=== PATIENT | male | born 1945 | race Caucasian/White ===

== ENCOUNTER 2020-12-18 11:14 | Day surgery (SDC) | payer MEDICARE, BC ==
[2020-12-13 16:32] LABS: EOSINOPHILS # (AUTO) 0.3 X10'3 (0-0.9)
[2020-12-13 16:34] LABS: BASOPHILS # (AUTO) 0.1 X10'3 (0-0.2); BASOPHILS % (AUTO) 0.8 % (0-1); LYMPHOCYTES # (AUTO) 2.1 X10'3 (1.1-4.8); LYMPHOCYTES % (AUTO) 30.9 % (21-51); MEAN CORPUSCULAR HEMOGLOBIN 30.1 PG (27.0-31.0); MEAN CORPUSCULAR HGB CONC 33.1 g/dL (33.0-36.5); MEAN PLATELET VOLUME 7.5 FL (7.4-10.4); MONOCYTES # (AUTO) 0.9 X10'3 (0-0.9); MONOCYTES % (AUTO) 13.5 % (2-12); NEUTROPHILS # (AUTO) 3.4 X10'3 (1.8-7.7); NEUTROPHILS % (AUTO) 49.8 % (42-75); PRE OP HEMOGLOBIN 14.2 g/dL (14.0-17.9); PRE OP PLATELET COUNT 223 X10'3 (140-440); RED BLOOD COUNT 4.72 X10'6 (4.70-6.10); RED CELL DISTRIBUTION WIDTH 13.5 % (11.5-14.5)
[2020-12-13 16:44] LABS: PRE OP PROTIME 10.6 SECONDS (9.0-12.0)
[2020-12-13 16:50] LABS: ALBUMIN/GLOBULIN RATIO 1.3 (1.1-1.5); ALKALINE PHOSPHATASE 83 IU/L (46-116); BLOOD UREA NITROGEN 23 MG/DL (7-18); BUN/CREATININE RATIO 19.8 (5.4-32.0); CALCIUM 9.4 MG/DL (8.5-10.1); CHLORIDE 106 MMOL/L (99-107); CREATININE 1.16 MG/DL (0.60-1.10); PRE OP ALT 30 U/L (30-65); PRE OP ANION GAP 11 (8-16); PRE OP AST 16 U/L (10-37); PRE OP BILIRUB, TOTAL 0.4 MG/DL (0.0-1.0); PRE OP GLUCOSE 106 MG/DL (70-104); PRE OP POTASSIUM 4.2 MMOL/L (3.4-5.1); PRE OP SODIUM 143 MMOL/L (135-145); TOTAL CARBON DIOXIDE 25.9 MMOL/L (24-32); TOTAL PROTEIN 7.2 G/DL (6.4-8.2); eGFR 61 ML/MIN
[2020-12-18] VITALS (18 sets, daily range): BP systolic 105–144; BP diastolic 51–88
[~2020-12-18] VITALS: Ht 175.3 cm; Wt 86.5 kg
[2020-12-18] MEDS: multivitamins, therapeutics tablet PO SCH (08:00)
[~2020-12-18 11:14] MED LIST: HYDROmorphone 1 mg/ml syringe IV PRN; HYDROmorphone inj. 0.5 MG/0.5 ML DISP.SYRIN IV PRN; NO HOME MEDS; acetaminophen 325mg tablet PO ONE; acetaminophen 325mg tablet PO PRN; bisacodyl 10mg suppository rectal RC PRN; ceFAZolin 2gm in dextrose, iso 50 ML IV ONE; celeCOXIB 100mg capsule PO ONE; diphenhydrAMINE 25mg capsule PO PRN; famotidine 20mg tablet PO ONE; gabapentin 300mg capsule PO ONE; magnesium hydroxide 30ml (MOM) UD suspension PO PRN; metoclopramide 5 mg/ml inj IV ONE; ondansetron/PF 4mg/2ml inj IV PRN; oxyCODONE SR 10mg (sust. release) tab -2 tabs (20mg) PO ONE; oxyCODONE/APAP 10/325mg tablet PO PRN; ringers solution, lacted 1,000 ML IV SCH; tranexamic acid inj. 1,000 MG in normal saline 100 ML IV ONE; vancomycin 1,500 MG in NS 300ml IV soln IV ONE
[2020-12-18] MEDS ORDERED: tranexamic acid 1gm/0.7% sal. 100 ML IV ONE ×3 (12:10→19:00)
[2020-12-18] MEDS ORDERED: ROPIVAcaine inj 250 MG, CloNIDine/PF inj 80 MCG, epiNEPHrine inj 0.5 MG in normal salin... IV ONE (12:15)
[2020-12-18] MEDS ORDERED: LIDOcaine 1% (10mg/ml) 2ml vial ONE (12:21)
[2020-12-18] MEDS ORDERED: vancomycin 1,000mg inj ONE (12:22)
[2020-12-18] MEDS ORDERED: MIDAZolam 1mg/ml 10ml vial ONE (13:38)
[2020-12-18] MEDS ORDERED: fentaNYL/PF 50MCG/1 ML 2ML syringe ONE (13:38)
[2020-12-18] MEDS ORDERED: proCHLORperazine 10 MG/2 ml inj IV PRN (14:35)
[2020-12-18] MEDS ORDERED: morphine 2 MG/ML inj. syringe IV PRN (14:35)
[2020-12-18] MEDS ORDERED: ringers solution, lacted 1,000 ML IV SCH (14:35)
[2020-12-18] MEDS ORDERED: meperidine/PF 25mg/ml syringe IV PRN ×3 (14:35)
[2020-12-18] MEDS ORDERED: ondansetron/PF 4mg/2ml inj IV PRN (14:35)
[2020-12-18] MEDS ORDERED: morphine 4 MG/ML inj SYRINge IV PRN (14:35)
[2020-12-18] MEDS ORDERED: ROPIVAcaine 0.2% (10 MG/5 ML) BOLUS INJECTION ADDCANAL PRN (14:35)
[2020-12-18] MEDS ORDERED: ROPIVAcaine 0.5% (5mg/ml) 30ml vial ONE (15:23)
--- NOTE | 2020-12-18 15:51 | NUR ---
Received from OR via , accompanied by Anesthesiologist DR JOHNSON and report given by Anesthesiolgist. AWAKE AND RAFAT PAIN. VITALS STABLE. DRESSING DI. SESATION AT THE HIPS.
[2020-12-18] MEDS ORDERED: cefazolin/dext.iso 2gm/100ml 100 ML IV SCH (16:00)
[2020-12-18] MEDS: ROPIVAcaine 0.2%/PF PUMP/bolus 550 ML ADDCANAL SCH (16:09)
--- NOTE | 2020-12-18 16:51 | NUR ---
Report called to receiving nurse. Transferred via BED Belongings . Special Issues communicated to receiving nurse. AWAKE AND ORIENTED. VITALS STABLE. DRESSING DI. RAFAT PAIN. TO SURGICAL RM 360A AT THIS TIME.
[2020-12-18] MEDS ORDERED: cefazolin/dext.iso 2gm/50ml 50 ML IV SCH (17:06)
--- NOTE | 2020-12-18 18:27 | NUR ---
Patient in room [facility]. I have received report from Jaye TILLMAN and had the opportunity to ask questions and assume patient care.
--- NOTE | 2020-12-18 18:27 | NUR ---
Problems reprioritized. Patient report given, questions answered & plan of care reviewed with Nahomi TILLMAN.
[2020-12-18] MEDS: potassium cl 20mEq in 1/2 NS 1,000 ML IV SCH ×3 (19:53→22:55)
[2020-12-18] MEDS: ascorbic acid 500mg tablet PO SCH (20:00)
[2020-12-18] MEDS ORDERED: sennosides 8.6mg tablet PO SCH (21:00)
[2020-12-18] MEDS: gabapentin 300mg capsule PO SCH (21:00)
--- NOTE | 2020-12-19 06:27 | NUR ---
Problems reprioritized. Patient report given, questions answered & plan of care reviewed with Yamileth TILLMAN.
--- NOTE | 2020-12-19 06:41 | NUR ---
Patient in room [facility]. I have received report from PRIMO HERNANDEZ and had the opportunity to ask questions and assume patient care.
[2020-12-19] MEDS: potassium cl 20mEq in 1/2 NS 1,000 ML IV SCH (06:55)
[2020-12-19 07:00] VITALS: BP 117/54
[2020-12-19 07:08] LABS: BASOPHILS % (AUTO) 0.3 % (0-1); EOSINOPHILS % (AUTO) 0.3 % (0-6); HEMATOCRIT 38.2 % (42.0-52.0); HEMOGLOBIN 12.8 g/dl (14.0-17.9); LYMPHOCYTES # (AUTO) 1.4 X10'3 (1.1-4.8); LYMPHOCYTES % (AUTO) 13.2 % (21-51); MEAN CORPUSCULAR HEMOGLOBIN 30.6 PG (27.0-31.0); MEAN CORPUSCULAR HGB CONC 33.5 g/dL (33.0-36.5); MEAN CORPUSCULAR VOLUME 91.3 FL (78-98); MONOCYTES # (AUTO) 1.1 X10'3 (0-0.9); MONOCYTES % (AUTO) 10.3 % (2-12); NEUTROPHILS % (AUTO) 75.9 % (42-75); PLATELET COUNT 251 X10'3 (140-440); RED BLOOD COUNT 4.19 X10'6 (4.70-6.10); RED CELL DISTRIBUTION WIDTH 13.3 % (11.5-14.5); WHITE BLOOD COUNT 10.5 X10'3 (4.5-11.0)
[2020-12-19] MEDS ORDERED: ASPI-1 PO (07:47)
[2020-12-19] MEDS: multivitamins, therapeutics tablet PO SCH (07:52)
[2020-12-19] MEDS: gabapentin 300mg capsule PO SCH (07:53)
[2020-12-19] MEDS: ascorbic acid 500mg tablet PO SCH (07:53)
[2020-12-19 08:01] LABS: ANION GAP 9 (8-16); CHLORIDE 105 MMOL/L (99-107); POTASSIUM 4.3 MMOL/L (3.5-5.1); SODIUM 139 MMOL/L (135-145); TOTAL CARBON DIOXIDE 25.1 MMOL/L (24-32)
[2020-12-19] MEDS ORDERED: aspirin 325mg tablet PO SCH (08:30)
[2020-12-19] MEDS: ROPIVAcaine 0.2%/PF PUMP/bolus 550 ML ADDCANAL SCH (10:40)
--- NOTE | 2020-12-19 10:50 | NUR ---
PATIENT STABLE AND APPROPRIATE FOR DISCHARGE, IV TAKEN OUT, EDUCATION GIVEN, SCRIPT FOR NEW MEDS GIVEN, NEW ON-Q BALL PLACED, ALL BELONGINGS SENT WITH PATIENT, PATIENT TAKEN TO LOBBY IN WHEEL CHAIR TO AN AWAITING CAR WHERE FAMILY MEMBER WILL TAKE PATIENT HOME
[2020-12-19] MEDS ORDERED: celeCOXIB 100mg capsule PO SCH (20:00)
== END 2020-12-19 10:48 | disposition home or self-care (01) ==
LOC: PAS 11:14 → UNDOADMIN 11:15 → SUR 3N 11:15 → PAS 12-19 10:48
PROVIDERS: ATTEND Orthopaedic Surgery
DX: M17.12 Unilateral primary osteoarthritis, left knee (principal); Z90.49 Acquired absence of other specified parts of digestive tract; Z98.890 Other specified postprocedural states; Z87.891 Personal history of nicotine dependence; G47.30 Sleep apnea, unspecified; Z91.041 Radiographic dye allergy status; Z20.822 Contact with and (suspected) exposure to COVID-19; Z79.899 Other long term (current) drug therapy
CPT/HCPCS: 27447; 36415; 64447; 71045; 73560; 76942; 80051; 80053; 82948; 85025; 85610; 85730; 86885; 86900; 86901; 87081; 87635; 93005; 97110; 97161; 97530; C1713; C1776; J1170; J2001; J2250; J2405; J2765; J2795; J3010; J3370; J7040; J7120; Q0163; A4215; A7000; G0378; J3480

== ENCOUNTER 2021-01-04 08:31 | Emergency (ER) | payer MEDICARE, BC ==
[~2021-01-04] VITALS: Ht 175.3 cm; Wt 86.4 kg
[~2021-01-04 08:31] MED LIST changes: +ASPI-1 PO; -HYDROmorphone 1 mg/ml syringe IV PRN; -HYDROmorphone inj. 0.5 MG/0.5 ML DISP.SYRIN IV PRN; -acetaminophen 325mg tablet PO ONE; -acetaminophen 325mg tablet PO PRN; -bisacodyl 10mg suppository rectal RC PRN; -ceFAZolin 2gm in dextrose, iso 50 ML IV ONE; -celeCOXIB 100mg capsule PO ONE; -diphenhydrAMINE 25mg capsule PO PRN; -famotidine 20mg tablet PO ONE; -gabapentin 300mg capsule PO ONE; -magnesium hydroxide 30ml (MOM) UD suspension PO PRN; -metoclopramide 5 mg/ml inj IV ONE; -ondansetron/PF 4mg/2ml inj IV PRN; -oxyCODONE SR 10mg (sust. release) tab -2 tabs (20mg) PO ONE; -oxyCODONE/APAP 10/325mg tablet PO PRN; -ringers solution, lacted 1,000 ML IV SCH; -tranexamic acid inj. 1,000 MG in normal saline 100 ML IV ONE; -vancomycin 1,500 MG in NS 300ml IV soln IV ONE
[2021-01-04 08:57] LABS: BASOPHILS % (AUTO) 0.4 % (0-1); EOSINOPHILS % (AUTO) 0.4 % (0-6); HEMATOCRIT 35.5 % (42.0-52.0); HEMOGLOBIN 11.9 g/dl (14.0-17.9); LYMPHOCYTES # (AUTO) 1.6 X10'3 (1.1-4.8); LYMPHOCYTES % (AUTO) 13.2 % (21-51); MEAN CORPUSCULAR HEMOGLOBIN 29.7 PG (27.0-31.0); MEAN CORPUSCULAR HGB CONC 33.5 g/dL (33.0-36.5); MEAN CORPUSCULAR VOLUME 88.7 FL (78-98); MEAN PLATELET VOLUME 6.3 FL (7.4-10.4); MONOCYTES # (AUTO) 0.9 X10'3 (0-0.9); MONOCYTES % (AUTO) 7.8 % (2-12); NEUTROPHILS # (AUTO) 9.4 X10'3 (1.8-7.7); NEUTROPHILS % (AUTO) 78.2 % (42-75); PLATELET COUNT 545 X10'3 (140-440); RED CELL DISTRIBUTION WIDTH 13.2 % (11.5-14.5)
[2021-01-04 09:13] LABS: ALANINE AMINOTRANSFERASE 37 U/L (12-78); ALBUMIN 3.6 G/DL (3.4-5.0); ALBUMIN/GLOBULIN RATIO 1.1 (1.1-1.5); ALKALINE PHOSPHATASE 129 IU/L (46-116); ANION GAP 10 (8-16); ASPARTATE AMINO TRANSFERASE 17 U/L (10-37); BILIRUBIN,TOTAL 0.6 MG/DL (0.1-1.0); BLOOD UREA NITROGEN 25 MG/DL (7-18); BUN/CREATININE RATIO 22.3 (5.4-32.0); CALCIUM 8.5 MG/DL (8.5-10.1); CHLORIDE 97 MMOL/L (99-107); CREATININE 1.12 MG/DL (0.60-1.10); GLUCOSE 119 MG/DL (70-104); LIPASE 52 U/L (73-393); SODIUM 130 MMOL/L (135-145); TOTAL CARBON DIOXIDE 23.1 MMOL/L (24-32); eGFR 64 ML/MIN
[2021-01-04 09:42] LABS: CLARITY,URINE CLEAR (Clear); COLOR,URINE YELLOW (Yellow); GLUCOSE, URINE NEGATIVE (Neg); KETONES,URINE NEGATIVE (Neg); LEUKOCYTE ESTERASE ,URINE NEGATIVE (Neg); NITRITES, URINE NEGATIVE (Neg); OCCULT BLOOD,URINE NEGATIVE (Neg); PROTEIN,URINE NEGATIVE (Neg)
[2021-01-04 09:44] LABS: UA COLLECTION TYPE STRAIGHT CATH
[2021-01-04] MEDS ORDERED: NALO25TA4 PO (11:36)
[2021-01-04 11:57] VITALS: BP 145/81
[2021-01-05] MEDS ORDERED: CEPH250T PO (05:30)
== END 2021-01-04 12:03 | disposition home or self-care (01) ==
LOC: ER 08:31
DX: R33.9 Retention of urine, unspecified (principal); K59.00 Constipation, unspecified; R10.30 Lower abdominal pain, unspecified; Z88.6 Allergy status to analgesic agent; Z91.013 Allergy to seafood; Z79.82 Long term (current) use of aspirin; Z79.899 Other long term (current) drug therapy
CPT/HCPCS: 36415; 80053; 81003; 83690; 85025; 99284

== ENCOUNTER 2021-01-05 00:43 | Emergency (ER) | payer MEDICARE, BC ==
[~2021-01-05] VITALS: Ht 175.3 cm; Wt 80.0 kg
[~2021-01-05 00:43] MED LIST changes: +NALO25TA4 PO
[2021-01-05] MEDS ORDERED: LIDOcaine 2% 10ml TOPICAL JELLY (Urojet) MM STA (00:55)
[2021-01-05] MEDS ORDERED: bisacodyl 10mg suppository rectal RC ONE (01:45)
[2021-01-05] MEDS ORDERED: ketorolac trometh. 30mg/ml inj. IM ONE (01:45)
[2021-01-05] MEDS ORDERED: morphine 10mg/ml inj. IM ONE (01:45)
[2021-01-05] MEDS ORDERED: magnesium oxide 400mg tablet PO ONE (02:10)
[2021-01-05] MEDS ORDERED: cyclobenzaprine 10mg tablet PO ONE (02:10)
--- NOTE | 2021-01-05 02:19 | NUR ---
MD digitally disimpacted him for 6 lumps of very dry stool.
[2021-01-05] MEDS ORDERED: normal saline 1000ML IV soln IVB ONE (02:20)
--- NOTE | 2021-01-05 02:20 | NUR ---
I called lab, the urine is there. They just hadn't received it.
[2021-01-05 02:26] LABS: CLARITY,URINE CLEAR (Clear); COLOR,URINE YELLOW (Yellow); GLUCOSE, URINE NEGATIVE (Neg); KETONES,URINE NEGATIVE (Neg); LEUKOCYTE ESTERASE ,URINE NEGATIVE (Neg); NITRITES, URINE NEGATIVE (Neg); OCCULT BLOOD,URINE LARGE (Neg); PROTEIN,URINE NEGATIVE (Neg); UROBILINOGEN,URINE 0.2 E.U/dL (0.2-1.0)
[2021-01-05] MEDS ORDERED: methylnaltrexone br 12mg/0.6ml inj***SubQ only SQ ONE (02:30)
[2021-01-05 02:31] LABS: UA COLLECTION TYPE CLN CATCH MIDSTREAM
[2021-01-05 02:32] LABS: BACTERIA,URINE NONE SEEN /HPF (Neg); RBC,URINE 20-50 /HPF (0-2); SQUAMOUS EPITHELIAL CELL,UR FEW /LPF (FEW); WBC,URINE 0-4 /HPF (0-4)
--- NOTE | 2021-01-05 03:40 | NUR ---
Patient complains of pain 8/10 to his left leg - Dr. Sheffield informed; no new orders at this time. Moderate amount of loose stool cleaned up, patient incontenent.
[2021-01-05] MEDS ORDERED: cephalexin 250mg capsule PO ONE (05:25)
[2021-01-05] MEDS ORDERED: CEPH250T PO (05:30)
--- NOTE | 2021-01-05 05:59 | NUR ---
taught and pt how to place leg bag and return it to the overnight drainage bag. Taught catheter care and potential complications for catheters. Put him in an attends for ride home and cleaned him twice of very large bms when I was trying to dc him. He is feeling so much better.
[2021-01-05 06:00] VITALS: BP 132/65
== END 2021-01-05 06:01 | disposition home or self-care (01) ==
LOC: ER 00:44
DX: R33.9 Retention of urine, unspecified (principal); K56.41 Fecal impaction; M19.90 Unspecified osteoarthritis, unspecified site; Z98.890 Other specified postprocedural states; Z88.6 Allergy status to analgesic agent; Z91.013 Allergy to seafood; Z79.82 Long term (current) use of aspirin; Z79.899 Other long term (current) drug therapy
CPT/HCPCS: 51702; 74018; 81001; 96372; 99284; J1885; J2212; J2270; J7030

== ENCOUNTER → 2021-05-12 | Emergency (ER) | payer MEDICARE, BC ==
[~2021-05-12] VITALS: Ht 175.3 cm; Wt 85.0 kg
[~2021-05-12] MED LIST changes: +CEPH250T PO
[2021-05-12 22:00] VITALS: BP 122/71
== END | disposition left against medical advice (07) ==
LOC: ER 21:55
DX: M79.605 Pain in left leg (principal); Z53.21 Procedure and treatment not carried out due to patient leaving prior to being seen by health care provider